=== PATIENT | female | born 1965 | race Caucasian/White ===

== ENCOUNTER 2024-10-18 11:07 | Day surgery (SDC) | payer OTHER ==
[~2024-10-18] VITALS: Ht 167.6 cm; Wt 75.1 kg
[2024-10-18] VITALS (16 sets, daily range): BP systolic 128–147; BP diastolic 68–85
[~2024-10-18 11:07] MED LIST: CefOXitin Sodium 2,000 MG in NS 50 ML IV SCH; IBUP600 PO; Lactated Ringer's 1,000 ML IV SCH; ONDA4ODT MM
[2024-10-18] MEDS ORDERED: HYDROmorphone HCl/Pf 1MG SYR IV PRN (11:30)
[2024-10-18] MEDS ORDERED: FentaNYL Citrate 50 MCG/ML 2 ML Injection IV PRN ×3 (11:30→11:35)
[2024-10-18] MEDS ORDERED: Ondansetron HCl 2 MG / ML 2ML Vial IV PRN (11:30)
--- NOTE | 2024-10-18 11:30 | NUR ---
INTO [facility]. PT IS A&OX4-DENIES PAIN. PT KALSKAG. HISTORY AND ALLERGIES REVIEWED. LUNGS CLEAR. NPO STATUS CONFIRMED. PT SPOUSE ANDREA IS RIDE HOME. PT GLASSES GIVEN TO ANDREA. PT CLOTHING IN BELONGINGS BAG BELOW THE GURNEY.
[2024-10-18] MEDS ORDERED: Indocyanine Green 25 MG Vial IV ONE (11:45)
[2024-10-18] MEDS ORDERED: FentaNYL Citrate 50 MCG/ML 2 ML Injection ONE ×2 (12:36→14:25)
[2024-10-18] MEDS ORDERED: propofoL 20 ML IV ONE (12:36)
[2024-10-18] MEDS ORDERED: Midazolam HCl 1MG / ML 2ML Vial ONE (12:37)
[2024-10-18] MEDS ORDERED: Rocuronium Bromide 10 MG/ML 5ML Injection IV ONE (12:38)
[2024-10-18] MEDS ORDERED: Bupivacaine 0.5% HCl 5 MG/ML 30MLVIAL ONE (12:39)
[2024-10-18] MEDS ORDERED: Ketorolac Tromethamine 30mg Vial ONE (12:56)
[2024-10-18] MEDS ORDERED: Dexamethasone Sod Phos 10 MG/ML 1ML VIAL ONE (12:56)
[2024-10-18] MEDS ORDERED: Ondansetron HCl 2 MG / ML 2ML Vial ONE (12:56)
[2024-10-18] MEDS ORDERED: HYDROmorphone HCl/Pf 1MG SYR ONE (13:07)
[2024-10-18] MEDS ORDERED: Sugammadex Sodium 200 MG/2ML SDV (100 MG/ML) ONE (13:41)
[2024-10-18] MEDS ORDERED: OxyCODONE 5 mg/Acetamin 325 mg TABLET PO PRN (14:05)
--- NOTE | 2024-10-18 15:46 | NUR ---
Patient up to Ambulate with standby assist. Gait steady. Discharge instructions reviewed with patient. Patient verbalizes understanding. Copy given to patient to take home. Dressing to procedure site clean, dry, intact with no visible drainage, swelling, erythema or bruising noted. Patient States Post-Procedure ride home has been arranged. Discharged via wheelchair to private car for ride home.
== END 2024-10-18 15:46 | disposition home or self-care (01) ==
LOC: ORSCMMR 11:07 → ORD 12:30 → ORSCMMR 15:46
PROVIDERS: Surgery
PROC: BF031ZZ Plain Radiography of Gallbladder and Bile Ducts using Low Osmolar Contrast (ICD-10-PCS; principal; 2024-10-18 12:30)
PROC: 0FT44ZZ Resection of Gallbladder, Percutaneous Endoscopic Approach (ICD-10-PCS; principal; 2024-10-18 12:30)
DX: K80.10 Calculus of gallbladder with chronic cholecystitis without obstruction (principal); K21.9 Gastro-esophageal reflux disease without esophagitis; J45.909 Unspecified asthma, uncomplicated; K66.0 Peritoneal adhesions (postprocedural) (postinfection)
CPT/HCPCS: 88304; A9270; J0694; J1100; J1171; J1885; J2250; J2405; J2704; J3010; J7120

== ENCOUNTER 2025-07-27 10:27 | Day surgery (SDC) | payer OTHER ==
[~2025-07-27] VITALS: Ht 167.6 cm; Wt 77.4 kg
[2025-07-27] VITALS (28 sets, daily range): BP systolic 76–161; BP diastolic 30–99
[~2025-07-27 10:27] MED LIST changes: -CefOXitin Sodium 2,000 MG in NS 50 ML IV SCH; -Lactated Ringer's 1,000 ML IV SCH
--- NOTE | 2025-07-27 11:00 | NUR ---
07/27/25 Katalina Llnaes CONFIRMED AND REVIEWED H&P, MEDCICATIONS, ALLERGIES, MEDICAL HISTORY, RESPIRATORY HISTORY, VITAL SIGNS, 3-LEAD EKG, CONSENTS, AND PHYSICIAN ORDERS. PATIENT CONFIRMS NPO STATUS AND AGREES WITH SCHEDULED PROCEDURE. MONITOR INTACT WITH CONTINUOUS PULSE OXIMETRY, CAPNOGRAPHY, 3-LEAD EKG, INTERMITTENT BP. SUPPLEMENTAL O2 TO BE TITRATED THROUGHOUT PROCEDURE TO MAINTAIN O2 SATURATION ABOVE 90%. PATIENT DETERMINED TO BE ASA APPROPRIATE FOR PROPOFOL SEDATION PRIOR TO START OF PROCEDURE BY DR. ROMERO.
--- NOTE | 2025-07-27 11:10 | NUR ---
Ambulatory in Day Surgery. History, Chart, Medications and Allergies reviewed before start of procedure. Patient confirms NPO status and agrees with scheduled surgery. Pre-Op teaching done. Pt verbalizes understanding. Patient States Post-Procedure ride home has been arranged.
[2025-07-27] MEDS ORDERED: Benzocaine Oral Spray 0.5ML UD ONE (11:15)
[2025-07-27] MEDS ORDERED: Ipratropium/Albuterol SulF 2.5-0.5MG/3 ML Amp ONE (12:30)
[2025-07-27] MEDS ORDERED: Ipratropium/Albuterol SulF 2.5-0.5MG/3 ML Amp INH ONE (12:30)
--- NOTE | 2025-07-27 12:57 | NUR ---
TO STEP POST PROCEDURE. CADEN PO WELL. DENIES PAIN, NAUSEA. MILD COUGH AND SLIGHT SOB NOTED, LUNGS CTA. DUONEB GIVEN WITH GOOD EFFECT. REPORTS IMPROVEMENTIN SOB. LUNGS REMAIN CLEAR. DC'D IV INTACT. VERBALIZED UNDERSTANDING OF DC INSTRUCTIONS. DC'D VIA WC TO PRIVATE CAR WITH TALENT DEVELOPMENT COORDINATOR.
== END 2025-07-27 12:50 | disposition home or self-care (01) ==
LOC: ORSCMMR 10:27 → ORD 11:45 → ORSCMMR 12:50
PROVIDERS: Surgery
PROC: 0DBN8ZX Excision of Sigmoid Colon, Via Natural or Artificial Opening Endoscopic, Diagnostic (ICD-10-PCS; principal; 2025-07-27 11:45)
PROC: 0DB98ZX Excision of Duodenum, Via Natural or Artificial Opening Endoscopic, Diagnostic (ICD-10-PCS; principal; 2025-07-27 11:45)
PROC: 0DB78ZX Excision of Stomach, Pylorus, Via Natural or Artificial Opening Endoscopic, Diagnostic (ICD-10-PCS; principal; 2025-07-27 11:45)
PROC: 0DB48ZX Excision of Esophagogastric Junction, Via Natural or Artificial Opening Endoscopic, Diagnostic (ICD-10-PCS; principal; 2025-07-27 11:45)
DX: K21.9 Gastro-esophageal reflux disease without esophagitis (principal); Z12.11 Encounter for screening for malignant neoplasm of colon; Z86.0100 Personal history of colon polyps, unspecified; D12.5 Benign neoplasm of sigmoid colon; Z83.719 Family history of colon polyps, unspecified; J45.909 Unspecified asthma, uncomplicated; K29.70 Gastritis, unspecified, without bleeding; K57.30 Diverticulosis of large intestine without perforation or abscess without bleeding; K64.1 Second degree hemorrhoids
CPT/HCPCS: 88304; 88305; 88342; A9270; J2704; J7120

== ENCOUNTER → 2025-10-02 | Outpatient (CLI) | payer OTHER | LOC: LAB SHORT 17:21 → LAB 17:21 | PROVIDERS: Obstetrics & Gynecology | DX: Z01.419 Encounter for gynecological examination (general) (routine) without abnormal findings (principal) | CPT/HCPCS: 87624; G0145 ==